=== PATIENT | male | born 1955 | race Caucasian/White ===

== ENCOUNTER 2017-03-18 06:00 | Emergency (ER) | payer OTHER ==
[~2017-03-18] VITALS: Ht 172.7 cm; Wt 94.3 kg
[2017-03-18 08:05] VITALS: BP 130/74
== END 2017-03-18 08:05 | disposition home or self-care (01) ==
LOC: ED 06:00
DX: J20.9 Acute bronchitis, unspecified (principal); E03.9 Hypothyroidism, unspecified; M19.90 Unspecified osteoarthritis, unspecified site
CPT/HCPCS: J7620